=== PATIENT | female | born 1975 ===

== ENCOUNTER 2020-09-28 11:45 | Inpatient (IN) | payer OTHER ==
[2020-09-28] MEDS ORDERED: COZAAR50 MG PO (15:39)
[2020-10-07] MEDS ORDERED: IBUPROFEN800 MG PO (07:07)
[2020-10-07] MEDS ORDERED: NEURONTIN600 MG PO (07:07)
[2020-10-07] MEDS ORDERED: INTEGRA PLUS C1 EACH PO (07:07)
[2020-10-07] MEDS ORDERED: CLEOCIN HCL300 MG PO (07:07)
[2020-10-07] MEDS ORDERED: SIMETHICONE125 M1 PO (07:07)
== END 2020-10-07 12:37 | disposition home or self-care (01) | DRG 743 ==
LOC: O/R 10-04 05:45 → OB/GYN 10-04 05:45 → SURH 10-04 07:00 → OB/GYN 10-04 10:18 → SURH 10-04 11:45 → OB/GYN 10-07 12:37
PROVIDERS: ADMIT Obstetrics & Gynecology; ATTEND Obstetrics & Gynecology
PROC: 0UB70ZZ Excision of Bilateral Fallopian Tubes, Open Approach (ICD-10-PCS; 2020-10-04)
PROC: 0UT90ZZ Resection of Uterus, Open Approach (ICD-10-PCS; principal; 2020-10-04 07:00)
DX: D25.1 Intramural leiomyoma of uterus (principal); D25.2 Subserosal leiomyoma of uterus; N72 Inflammatory disease of cervix uteri; N80.0 Endometriosis of uterus